=== PATIENT | male | born 1960 | race Caucasian/White ===

== ENCOUNTER 2016-06-23 12:59 | Inpatient (IN) | payer BC ==
[2016-06-23] MEDS ORDERED: HEPARIN SODIUM,PORCINE 5,000 UNIT/ML 1 ML VIAL IV ONE (13:02)
[2016-06-23] MEDS ORDERED: ATORVASTATIN 80 MG TAB PO STA (13:03)
[2016-06-23] MEDS ORDERED: LIDOCAINE 2% INJ 20 MG/ML (20 ML MDV) ONE (13:07)
[2016-06-23] MEDS ORDERED: MIDAZOLAM 2 MG/2 ML VIAL ONE (13:08)
--- NOTE | 2016-06-23 13:11 | ED ---
General Adult HPI - General Stated complaint: Stemi Time Seen by Provider: 06/23/16 12:59 Source: RN notes reviewed - History of Present Illness Initial comments: Is a 55-year-old male who presents emergency Department with an hour and a half of chest pain. Patient states it does not radiate anywhere. He states he somewhat short of breath. Patient states he has no hypertension high cholesterol or diabetes. He does admit that he has family history of a brother who had a heart attack. Patient denies any smoking as well. Patient received nitroglycerin in the ambulance and reduce his pain significantly. Patient states after the second nitro in the emergency department he states his pain is a 0. Patient denies any palpitations per patient denies any headache patient denies numbness weakness. Patient denies any lightheadedness dizziness or near syncopal episode. Patient denies any abdominal pain patient denies nausea vomiting diarrhea. Review of Systems ROS Statement: Those systems with pertinent positive or pertinent negative responses have been documented in the HPI. ROS Other: All systems not noted in ROS Statement are negative. General Exam - General Exam Comments Initial Comments: GENERAL: Patient is well-developed and well-nourished. Patient is nontoxic and well- hydrated and is in mild distress. ENT: Neck is soft and supple. No significant lymphadenopathy is noted. Oropharynx is clear. Moist mucous membranes. Neck has full range of motion without eliciting any pain. EYES: The sclera were anicteric and conjunctiva were pink and moist. Extraocular movements were intact and pupils were equal round and reactive to light. Eyelids were unremarkable. PULMONARY: Unlabored respirations. Good breath sounds bilaterally. No audible rales rhonchi or wheezing was noted. CARDIOVASCULAR: There is a regular rate and rhythm without any murmurs gallops or rubs. ABDOMEN: Soft and nontender with normal bowel sounds. No palpable organomegaly was noted. There is no palpable pulsatile mass. SKIN: Skin is clear with no lesions or rashes and otherwise unremarkable. NEUROLOGIC: Patient is alert and oriented x3. Cranial nerves II through XII are grossly intact. Motor and sensory are also intact. Normal speech, volume and content. Symmetrical smile. MUSCULOSKELETAL: Normal extremities with adequate strength and full range of motion. No lower extremity swelling or edema. No calf tenderness. LYMPHATICS: No significant lymphadenopathy is noted PSYCHIATRIC: Normal psychiatric evaluation. Medical Decision Making - Medical Decision Making EKG shows a normal sinus rhythm at 61 bpm TN interval is on a 56 dresses 150 QT interval 38 QTC is 390. Patient has a right bundle branch block. Patient also has some ST segment elevation in V2 and V3. Patient had an EKG sent to us via EMS that showed significant elevation the precordial leads. I spoke with Dr. Sweet at that time and he agreed to take the patient the Grounds Keeper as soon as we evaluated the patient and stabilize patient. I started the patient on a bolus of heparin in the ER. I gave the patient nitroglycerin and Lipitor. Chest x-ray shows no acute abnormality Patient was taken to the cardiac catheterization lab Critical Care Time Critical Care Time: Yes Total Critical Care Time: 30 Disposition Clinical Impression: STEMI (ST elevation myocardial infarction) Disposition: ADMITTED IP TO THIS HOSP Referrals: None,Stated [Primary Care Provider] - 1-2 days Time of Disposition: 13:14
--- NOTE | 2016-06-23 13:21 | XR ---
EXAMINATION TYPE: XR chest 1V portable DATE OF EXAM: 06/23/2016 1:16 PM Comparison: None Clinical History: 55-year-old male with chest Pain Findings: The cardiomediastinal silhouette, aorta, and pulmonary vasculature are within normal limits. Lungs and pleural spaces are clear. Impression: No acute cardiopulmonary process.
[2016-06-23 13:22] LABS: Basophils # (A) 0.1 k/uL (0-0.2); Basophils % (A) 1 %; CH 31.4; CHCM 34.3; Eosinophils # (A) 0.1 k/uL (0-0.7); Eosinophils % (A) 3 %; HCT 44.1 % (39.0-53.0); HDW 2.57; HGB 14.8 gm/dL (13.0-17.5); Luc # (Auto) 0.21; Luc % (Auto) 4; Lymphocytes # (A) 1.6 k/uL (1.0-4.8); Lymphocytes % (A) 31 %; MCH 30.9 pg (25.0-35.0); MCHC 33.5 g/dL (31.0-37.0); MCV 92.2 fL (80.0-100.0); Mean Platelet Volume 7.7; Monocytes # (A) 0.2 k/uL (0-1.0); Monocytes % (A) 4 %; Neutrophils % (A) 57 %; RBC 4.78 m/uL (4.30-5.90); RDW 12.8 % (11.5-15.5); WBC 5.2 k/uL (3.8-10.6); WBC (Perox) 5.27
[2016-06-23] MEDS ORDERED: SODIUM CHLORIDE 0.9% 1,000 ML IV ONE (13:27)
[2016-06-23] MEDS: MIDAZOLAM 2 MG/2 ML VIAL IVP ONE ×2 (13:27→13:53)
[2016-06-23] MEDS ORDERED: IV FLUID CONTINUATION 1,000 ML IV ONE (13:27)
[2016-06-23] MEDS ORDERED: LIDOCAINE 2% INJ 20 MG/ML SQ ONE (13:31)
[2016-06-23 13:36] LABS: ALT 30 U/L (21-72); AST 31 U/L (17-59); Alkaline Phosphatase 62 U/L (38-126); Anion Gap 11 mmol/L; Blood Urea Nitrogen 17 mg/dL (9-20); Calcium 9.3 mg/dL (8.4-10.2); Carbon Dioxide 26 mmol/L (22-30); Chloride 110 mmol/L (98-107); Glucose 96 mg/dL (74-99); Non-African American GFR(MDRD) >60 (>60 ml/min/1.73 sqM); Potassium 4.7 mmol/L (3.5-5.1); Sodium 147 mmol/L (137-145); Total Bilirubin 0.7 mg/dL (0.2-1.3); Total Protein 7.3 g/dL (6.3-8.2)
[2016-06-23] MEDS ORDERED: BIVALIRUDIN BOLUS 250 MG/50 ML IV ONE (13:42)
[2016-06-23] MEDS ORDERED: PRASUGREL 10 MG TAB ONE (13:45)
[2016-06-23] MEDS ORDERED: PRASUGREL 10 MG TAB PO ONE (13:47)
[2016-06-23] MEDS ORDERED: NITROGLYCERIN 1000MCG/10ML SYRINGE INTRACORON ONE ×2 (13:50→14:06)
[2016-06-23 13:54] LABS: INR 1.2 (<1.1); Partial Thromboplastin Time 25.3 sec (22.0-30.0); Prothrombin Time 11.8 sec (9.0-12.0)
[2016-06-23 13:56] LABS: Creatine Kinase MB 1.5 ng/mL (0.0-2.4)
[2016-06-23] MEDS ORDERED: fentaNYL (PF) 50 MCG/ML 2 ML AMP ONE (14:04)
[2016-06-23] MEDS ORDERED: fentaNYL (PF) 50 MCG/ML 2 ML AMP IV ONE (14:05)
[2016-06-23] MEDS ORDERED: niCARdipine Syringe (1,000 mcg/10 mL) INTRACORON ONE (14:06)
[2016-06-23 14:09] LABS: Troponin I 0.078 ng/mL (0.000-0.034)
[2016-06-23] MEDS ORDERED: IOHEXOL 350 MG/ML 100 ML BOTTLE INJ ONE (14:12)
[2016-06-23] MEDS ORDERED: BIVALIRUDIN 250 MG in SODIUM CHLORIDE 0.9% 50 ML IV ONE (14:25)
--- NOTE | 2016-06-23 14:36 | HP ---
DATE OF ADMISSION: CHIEF COMPLAINT: Chest pain. A 55-year-old gentleman with no significant past medical history came to the ER complaining of precordial chest pain. It started suddenly 8 out of 10 intensity pressure that radiated down his arms. Daughter took him to a fire station and from there he was brought in. On his initial presentation, he has sinus rhythm with right bundle branch block with ST segment elevation. He came in with precordial chest pressure and ST segment elevation SC in the anterior wall with ST segment elevation in V2. Due to this, he was advised emergent cardiac catheterization with a view to performing angioplasty. The patient had been explained of risks, benefits, and alternatives, understood and accepted. Past medical history is negative for hypertension, diabetes, dyslipidemia. MEDICATIONS: Concerta. ALLERGIES: As charted. FAMILY HISTORY: Significant for premature coronary artery disease. SOCIAL HISTORY: Negative for smoking, EtOH abuse, or drug abuse. REVIEW OF SYSTEMS: HEENT: Unremarkable. CARDIAC: As described above. RESPIRATORY: Negative. GI: Negative. GENITOURINARY: Negative. MUSCULOSKELETAL: Negative. ENDOCRINE: Negative. DERMATOLOGY: Negative. CONSTITUTIONAL: Negative. ONCOLOGICAL: Negative. The rest of the system review is not relevant. On exam, comfortable at rest. Vital signs are stable. Chest exam reveals good air entry bilaterally. Heart exam reveals first and second heart sound. No gallop, no murmur, no rub. ABDOMEN: Soft, nontender. Exam of the extremities did not reveal any edema. Peripheral pulses are felt. Labs are pending. EKG is as described above. ASSESSMENT: Acute anterior wall myocardial infarction. PLAN: Patient will undergo emergent cardiac catheterization with a view to performing angioplasty.
--- NOTE | 2016-06-23 14:40 | CC ---
DATE OF SERVICE: INDICATION: Acute ST segment elevation DC. PROCEDURE NOTE: After obtaining informed consent, left heart catheterization and coronary angiogram were performed via the right femoral artery using standard Gerald catheters. Patient tolerated the procedure well without any obvious immediate complications. FINDINGS: 1. LEFT VENTRICULOGRAM: Left ventriculogram was not performed. 2. ANGIOGRAPHIC DATA: Left main coronary artery: Left main coronary artery is a short vessel and is free of stenosis. It divides into left anterior descending coronary artery and circumflex coronary artery. Circumflex coronary artery is a large codominant system and AV groove has 70% to 80% stenosis, but is a small-caliber vessel. LAD is a large vessel that wraps around the apex of the heart and in the midportion there is a focal area of 90% to 95% stenosis. Right coronary artery only one image was obtained using a Xavier catheter. The mid RCA shows a 70% to 80% stenosis. CONCLUSION: Three-vessel coronary artery disease as described above with critical lesion in the LAD that will be angioplastied at this time and patient will undergo angioplasty of right coronary artery at a later time.
[2016-06-23] MEDS ORDERED: ATROPINE SULFATE 0.1 MG/ML 10ML SYRINGE IV PRN (14:45)
[2016-06-23] MEDS ORDERED: ALPRAZolam 0.25 MG TAB PO PRN (14:45)
[2016-06-23] MEDS ORDERED: MAG HYDROX/AL HYDROX/SIMETH 30 ML CUP PO PRN (14:45)
[2016-06-23] MEDS ORDERED: RX INFO: IV CONTRAST WAS GIVEN 1 EACH MISC MISCELLANE PRN (14:45)
[2016-06-23] MEDS ORDERED: NITROGLYCERIN SL TABS 0.4 MG TAB SUBLINGUAL PRN (14:45)
[2016-06-23] MEDS ORDERED: HYDROcodone/APAP 5-325MG 1 EACH TAB PO PRN (14:45)
[2016-06-23 16:38] LABS: Glucose,Whole Blood 112 mg/dL (75-99)
[2016-06-23] MEDS: SODIUM CHLORIDE 0.9% 1,000 ML IV SCH (18:12)
[2016-06-23] MEDS: METOPROLOL TARTRATE 25 MG TAB PO SCH (21:17)
[2016-06-24] MEDS: SODIUM CHLORIDE 0.9% 1,000 ML IV SCH (02:57)
[2016-06-24 04:57] LABS: Basophils % (A) 1 %; CH 30.9; CHCM 33.8; Eosinophils # (A) 0.2 k/uL (0-0.7); Eosinophils % (A) 2 %; HCT 39.3 % (39.0-53.0); HDW 2.61; HGB 12.9 gm/dL (13.0-17.5); Luc % (Auto) 3; Lymphocytes # (A) 1.7 k/uL (1.0-4.8); Lymphocytes % (A) 23 %; MCH 30.2 pg (25.0-35.0); MCHC 32.9 g/dL (31.0-37.0); MCV 91.7 fL (80.0-100.0); Mean Platelet Volume 7.8; Monocytes # (A) 0.4 k/uL (0-1.0); Monocytes % (A) 5 %; Neutrophils % (A) 67 %; RBC 4.28 m/uL (4.30-5.90); RDW 12.8 % (11.5-15.5); WBC 7.4 k/uL (3.8-10.6); WBC (Perox) 8.33
[2016-06-24 05:14] LABS: Anion Gap 8 mmol/L; Blood Urea Nitrogen 13 mg/dL (9-20); Calcium 8.6 mg/dL (8.4-10.2); Carbon Dioxide 22 mmol/L (22-30); Chloride 110 mmol/L (98-107); Cholesterol 146 mg/dL (<200); Glucose 94 mg/dL (74-99); HDL Cholesterol 41 mg/dL (40-60); Non-African American GFR(MDRD) >60 (>60 ml/min/1.73 sqM); Potassium 4.2 mmol/L (3.5-5.1); Sodium 140 mmol/L (137-145); Triglycerides 111 mg/dL (<150)
[2016-06-24] MEDS ORDERED: METHYLPHENIDATE HCL 54 MG PO SCH (09:00)
[2016-06-24] MEDS: PRASUGREL 10 MG TAB PO SCH (09:38)
[2016-06-24] MEDS: LISINOPRIL 10 MG TAB PO SCH ×2 (09:38→10:41)
[2016-06-24] MEDS: ASPIRIN 325 MG TAB PO SCH (09:38)
[2016-06-24] MEDS: METOPROLOL TARTRATE 25 MG TAB PO SCH ×2 (09:38→20:26)
--- NOTE | 2016-06-24 10:47 | ECHOF ---
Referral Reason:Post CO MEASUREMENTS -------- HEIGHT: 182.9 cm WEIGHT: 98.4 kg BP: 117/79 RVIDd: 2.7 cm (< 3.3) IVSd: 1.0 cm (0.6 - 1.1) LVIDd: 4.9 cm (3.9 - 5.3) LVPWd: 1.0 cm (0.6 - 1.1) IVSs: 1.4 cm LVIDs: 4.0 cm LVPWs: 1.4 cm LA Diam: 2.2 cm (2.7 - 3.8) LAESV Index (A-L): 16.09 ml/m Ao Diam: 3.5 cm (2.0 - 3.7) AV Cusp: 2.2 cm (1.5 - 2.6) LA Diam: 3.0 cm (2.7 - 3.8) MV EXCURSION: 22.451 mm (> 18.000) MV EF SLOPE: 93 mm/s (70 - 150) EPSS: 1.1 cm MV E Isra: 0.54 m/s MV DecT: 264 ms MV A Isra: 0.67 m/s MV E/A Ratio: 0.80 RAP: 5.00 mmHg RVSP: 16.63 mmHg FINDINGS -------- Sinus rhythm. This was a technically adequate study. There is borderline concentric left ventricular hypertrophy. Overall left ventricular systolic function is mild-moderately impaired with, an EF between 40 - 45 %. Mid anterior LV wall motion is hypokinetic. Mid lateral LV wall motion is hypokinetic. Mid anteroseptal LV wall motion is hypokinetic. [place] Hypokinesis. The right ventricle is normal in size. Normal LA size by volume 22+/-6 ml/m2. The right atrial size is normal. The aortic valve is trileaflet and appears structurally normal. There is no evidence of aortic regurgitation. The mitral valve is normal. Mild mitral regurgitation is present. Mild tricuspid regurgitation present. There is no evidence of pulmonary hypertension. The right ventricular systolic pressure, as measured by Doppler, is 16.63mmHg. There is no pulmonic regurgitation present. The aortic root size is normal. There is no pericardial effusion. CONCLUSIONS -------- 1. This was a technically adequate study. 2. Mild mitral regurgitation is present. 3. Mild tricuspid regurgitation present. 4. There is no evidence of pulmonary hypertension. 5. There is no pulmonic regurgitation present. 6. There is no pericardial effusion. 7. There is borderline concentric left ventricular hypertrophy. 8. Overall left ventricular systolic function is mild-moderately impaired with, an EF between 40 - 45 %. 9. Mid anterior LV wall motion is hypokinetic. 10. Mid lateral LV wall motion is hypokinetic. 11. Mid anteroseptal LV wall motion is hypokinetic. 12. [place] Hypokinesis. 13. Normal LA size by volume 22+/-6 ml/m2. 14. The aortic valve is trileaflet and appears structurally normal. LICENSED PRACTICAL NURSE INSTRUCTOR: Salena Gonzalez RDCS
--- NOTE | 2016-06-24 14:07 | PN ---
Dank is a 55-year-old gentleman who is admitted to hospital with acute anterior wall myocardial infarction, underwent cardiac catheterization and angioplasty of LAD. He has hemodynamically significant lesion in the RCA, which is going to be angioplasty, probably on Wednesday. This morning he is doing well and is free of symptoms. Labs show a hemoglobin of 12.9, platelet count is normal at 190, LDL is 83. On exam, vital signs are stable. Chest exam reveals good air entry bilaterally. Heart exam reveals first and second heart sounds. No gallop. Groin is free of bleeding, bruit, hematoma. Foot pulses are intact. An echocardiogram shows an ejection fraction of 40% to 45% with evidence of hypokinesis involving anterior wall. Patient is on optimal medical therapy including aspirin, Lipitor, Zestril, Lopressor, and Effient. ASSESSMENT: Acute anterior wall myocardial infarction. PLAN: Patient is doing well. Will transfer him to regular floor. Continue with his current medications.
[2016-06-24] MEDS: ATORVASTATIN 80 MG TAB PO SCH (20:27)
--- NOTE | 2016-06-24 22:15 | PTCA ---
DATE OF SERVICE: June 23, 2016 Performing physician: Luis Alfredo Moreno M.D., routeman. PROCEDURE PERFORMED: 1. Successful stenting of the mid left anterior descending artery using a 3.25 x 23 mm Xience MOMO with a good angiographic result. 2. Successful stenting of the proximal left anterior descending artery using 3.5 x 18 mm Xience MOMO with a good angiographic result. INDICATION: This is a pleasant 55-year-old gentleman who presented to the hospital with chest discomfort and was diagnosed with acute anterior ST elevation myocardial infarction. He underwent a heart catheterization by Dr. Sweet and was found to have critical disease involving the proximal and mid LAD. APPROACH: Right common femoral artery. COMPLICATIONS: None. LEVEL OF SEDATION: Moderate. PROCEDURE DESCRIPTION: After obtaining after diagnostic heart catheterization was performed by Dr. Sweet, we decided to pursue with intervention on the LAD. Anticoagulation was initiated using Angiomax. Subsequently, I did take an XB 3.5 LAD guide and the left main was engaged. A Whisper wire was used to wire the LAD. Subsequently, I did the pre-dilatation using 2.5 x 12 mm balloon, where I ballooned the mid and proximal LAD. After that, I did stent initially the mid LAD using 3.25 x 23 mm Xience MOMO, where the stent was positioned under fluoroscopy guidance and then it was deployed under 10 atmospheres. After that, I postdilated using 3.5 mm balloon. For the proximal LAD, I deployed 3.5 x 18 mm Xience MOMO, where the stent again was positioned under fluoroscopy guidance, then it was deployed under its nominal pressure with the following angiogram showed good angiographic results. The procedure was completed without any complication. POSTPROCEDURE MANAGEMENT: 1. Dual antiplatelet therapy. 2. Risk factor modification. 3. Follow up with the patient.
[2016-06-25 06:13] LABS: CH 31.1; CHCM 33.8; HCT 42.8 % (39.0-53.0); HDW 2.53; HGB 14.1 gm/dL (13.0-17.5); MCH 30.3 pg (25.0-35.0); MCHC 32.9 g/dL (31.0-37.0); MCV 92.2 fL (80.0-100.0); Mean Platelet Volume 6.8; RBC 4.64 m/uL (4.30-5.90); RDW 12.7 % (11.5-15.5); WBC 7.2 k/uL (3.8-10.6)
[2016-06-25 06:24] LABS: Anion Gap 6 mmol/L; Blood Urea Nitrogen 10 mg/dL (9-20); Calcium 8.8 mg/dL (8.4-10.2); Carbon Dioxide 26 mmol/L (22-30); Chloride 107 mmol/L (98-107); Glucose 98 mg/dL (74-99); Magnesium 2.1 mg/dL (1.6-2.3); Non-African American GFR(MDRD) >60 (>60 ml/min/1.73 sqM); Potassium 3.9 mmol/L (3.5-5.1); Sodium 139 mmol/L (137-145)
[2016-06-25] MEDS ORDERED: Potassium Replacement Protocol 1 EACH MISC MISCELLANE PRN (06:58)
[2016-06-25] MEDS ORDERED: POTASSIUM CHLORIDE ER 20 MEQ TAB.ER PO SCH (07:00)
[2016-06-25] MEDS: METOPROLOL TARTRATE 25 MG TAB PO SCH (08:16)
[2016-06-25] MEDS: PRASUGREL 10 MG TAB PO SCH (08:16)
[2016-06-25] MEDS: LISINOPRIL 10 MG TAB PO SCH (08:16)
[2016-06-25] MEDS: ASPIRIN 325 MG TAB PO SCH (08:16)
[2016-06-25] MEDS ORDERED: NITROGLYCERIN SL TABS 0.4 MG TAB SUBLINGUAL PRN (13:03)
[2016-06-25] MEDS ORDERED: ALPRAZolam 0.5 MG TAB PO PRN (13:03)
[2016-06-25] MEDS ORDERED: ASPIRIN 325 MG TAB PO STA (13:03)
[2016-06-25] MEDS ORDERED: ALPRAZolam 0.25 MG TAB PO PRN (13:03)
[2016-06-25] MEDS ORDERED: SODIUM CHLORIDE 0.9% 1,000 ML in EMPTY BAG 1 BAG IV ONE (13:03)
[2016-06-25] MEDS ORDERED: ATORVASTATIN 80 MG TAB PO STA (13:03)
--- NOTE | 2016-06-25 17:21 | PN ---
Patient was admitted to the hospital with acute anterior myocardial infarction. Cardiac catheterization was done by Dr. Sweet and LAD was stented by Dr. Mroeno on June 23. Patient developed an episode of hypotension after receiving metoprolol and lisinopril. He responded to IV fluids without any chest pain or pressure. No symptoms at all ( ) came back ( ) mm systolic. Symptoms have disappeared, so will hold Lisinopril and metoprolol for the time being. Continue all the statins and antiplatelet agents as before. Patient's vital signs are stable at the present time. Denies any chest pain or pressure. Pressure came up to 92/52, pulse rate of 64. Pulse rate was 70 beats per minute and regular. Respirations of 20. Head normocephalic. HEENT unremarkable. Neck is supple. No thyroid enlargement. No bruit noted. Good carotid upstroke bilaterally. Chest is symmetrical. Cardiac examination: Regular rate and rhythm. S1 and S2. Lungs are clinically to auscultation and percussion. Patient is currently on: 1. Alprazolam. 2. Atorvastatin 80 mg p.o. daily. 3. Aspirin 325 mg p.o. daily. Lisinopril is on hold. Also advised to hold metoprolol for the time being. Continue Effient as before. Continue IV fluids at 100 mL/hour. Patient is scheduled to have ( ) staged angioplasty of the right coronary tomorrow; probably the second case to be done by Dr. Moreno. ASSESSMENT: 1. Recent anterior myocardial infarction with stenting of the mid left anterior descending coronary artery done on June 23. 2. Hyperlipidemia. 3. Cardiomyopathy with ejection fraction around 40% to 45%. Will need to add spironolactone because probably once the blood pressure stabilizes will do that along with a small dose of Lisinopril, maybe 2.5 mg to start with. Patient's prognosis is fair with continued medical therapy and risk factor modification.
[2016-06-25] MEDS: ATORVASTATIN 80 MG TAB PO SCH (20:54)
[2016-06-25] MEDS ORDERED: METOPROLOL TARTRATE 12.5 MG TAB PO SCH (21:00)
--- NOTE | 2016-06-25 22:26 | HP ---
DATE OF SERVICE: 06/24/2016 CHIEF COMPLAINT: Chest pain. HISTORY OF PRESENT ILLNESS: Mr. Bhandari is a 55-year-old male without significant past medical history, came to the ER with complaints of precordial chest pain, started suddenly, 8 out of 10 intensity, radiated down his left arm. Patient's daughter took him to [place]. From there, he was brought into the hospital. Otherwise, patient does have some dizziness with the chest pain. No onset of nausea. No onset of vomiting. Patient did not have any chest pain or short of breath. EKG showed ST segment elevation with right bundle branch block and ST elevation in V2. He was taken emergently to cardiac catheterization and had stent placement to LAD. Currently, patient is chest pain free. REVIEW OF SYSTEMS: CONSTITUTIONAL: No fever. No chills. RESPIRATORY: No cough or sputum production. CARDIOVASCULAR: No chest pain or shortness of breath. ABDOMEN: No nausea, vomiting or abdominal pain. GENITOURINARY: Negative. ENDOCRINE: Negative. PSYCHIATRIC: Negative. SKIN: Negative. All other 14-point review of systems negative except as above. PAST MEDICAL HISTORY: Patient denied any history of hypertension, diabetes mellitus or hyperlipidemia. PAST SURGICAL HISTORY: None. SOCIAL HISTORY: Negative for smoking, alcohol, drugs or IVDU. FAMILY HISTORY: Significant for premature coronary artery disease in his brother and other family members. ALLERGIES: No known drug allergies. HOME MEDICATIONS: Methylphenidate. PHYSICAL EXAMINATION: A 55-year-old male lying in the bed; awake, alert, oriented x3, appears to be in no apparent distress. VITALS: Blood pressure 110/71, pulse is from 80 to 58, respirations 14, temperature afebrile, pulse ox 97% on room air. HEENT: Atraumatic, normocephalic. Neck is supple. No JVD. CVS: S1, S2 heard. No murmurs. No gallop. No rub. LUNGS: Bilateral air entry is present. No edema. No crackles. ABDOMEN: Soft, nontender. Bowel sounds present. LANDSCAPING AND GROUNDSKEEPING LABORER: Awake, alert and oriented x3. No focal deficits. EXTREMITIES: No edema ( ). No clubbing or cyanosis. PSYCHIATRIC: Cooperative. LABORATORY DATA: WBC 5.2, hemoglobin 14.8, platelets are 218, INR 1.2. Sodium 147, potassium 4.7, chloride 110, bicarb is 26. BUN 17, creatinine 1.04. Troponin 0.078. ( ) is 83. EKG showed ST elevation in lead V2 and right bundle branch block. Chest x-ray: No acute cardiopulmonary process. IMPRESSION: 1. Acute ST-elevated myocardial infarction, status post cardiac catheterization and stenting of left anterior descending artery. 2. Anxiety. DISCUSSION AND PLAN: Patient will be continued on tele monitoring. Will continue to monitor the patient in the ICU today and continue the aspirin, prasugrel and statins and follow up closely. Cardiology is on board. Further recommendations based on the clinical course.
[2016-06-26 04:55] LABS: Basophils % (A) 1 %; CH 30.9; CHCM 33.7; Eosinophils # (A) 0.2 k/uL (0-0.7); Eosinophils % (A) 4 %; HCT 41.6 % (39.0-53.0); HDW 2.55; HGB 13.9 gm/dL (13.0-17.5); Luc # (Auto) 0.23; Luc % (Auto) 3; Lymphocytes # (A) 1.8 k/uL (1.0-4.8); Lymphocytes % (A) 26 %; MCH 30.7 pg (25.0-35.0); MCHC 33.3 g/dL (31.0-37.0); Mean Platelet Volume 7.1; Monocytes # (A) 0.5 k/uL (0-1.0); Monocytes % (A) 7 %; Neutrophils # (A) 4.2 k/uL (1.3-7.7); Neutrophils % (A) 60 %; RBC 4.53 m/uL (4.30-5.90); RDW 12.6 % (11.5-15.5); WBC 7.1 k/uL (3.8-10.6); WBC (Perox) 7.23
[2016-06-26 05:13] LABS: INR 1.2 (<1.1); Partial Thromboplastin Time 24.8 sec (22.0-30.0); Prothrombin Time 11.9 sec (9.0-12.0)
[2016-06-26 05:27] LABS: Anion Gap 9 mmol/L; Blood Urea Nitrogen 11 mg/dL (9-20); Calcium 8.7 mg/dL (8.4-10.2); Carbon Dioxide 21 mmol/L (22-30); Chloride 110 mmol/L (98-107); Glucose 98 mg/dL (74-99); Non-African American GFR(MDRD) >60 (>60 ml/min/1.73 sqM); Phosphorous 3.6 mg/dL (2.5-4.5); Potassium 4.3 mmol/L (3.5-5.1); Sodium 140 mmol/L (137-145)
[2016-06-26] MEDS: PRASUGREL 10 MG TAB PO SCH (08:18)
[2016-06-26] MEDS: ASPIRIN 325 MG TAB PO SCH (08:18)
[2016-06-26] MEDS ORDERED: LISINOPRIL 5 MG TAB PO SCH (09:00)
[2016-06-26] MEDS ORDERED: SODIUM CHLORIDE 0.9% 500 ML IV ONE (09:45)
[2016-06-26] MEDS ORDERED: VERAPAMIL 2.5 MG/ML 2 ML AMP ONE ×2 (10:00→10:01)
[2016-06-26] MEDS ORDERED: LIDOCAINE 2% INJ 20 MG/ML (20 ML MDV) ONE (10:00)
[2016-06-26] MEDS ORDERED: MIDAZOLAM 2 MG/2 ML VIAL ONE (10:08)
[2016-06-26] MEDS ORDERED: MIDAZOLAM 2 MG/2 ML VIAL IV ONE (10:13)
[2016-06-26] MEDS ORDERED: LIDOCAINE 2% INJ 20 MG/ML SQ ONE (10:13)
[2016-06-26] MEDS: VERAPAMIL SYRINGE (5 MG/10 ML) INTRAARTER ONE ×2 (10:14→10:29)
[2016-06-26] MEDS ORDERED: BIVALIRUDIN BOLUS 250 MG/50 ML IV ONE (10:17)
[2016-06-26] MEDS ORDERED: BIVALIRUDIN 250 MG in SODIUM CHLORIDE 0.9% 50 ML IV ONE (10:18)
[2016-06-26] MEDS ORDERED: NITROGLYCERIN 1000MCG/10ML SYRINGE INTRACORON ONE (10:20)
[2016-06-26] MEDS ORDERED: IOHEXOL 350 MG/ML 100 ML BOTTLE INJ ONE (10:31)
[2016-06-26] MEDS ORDERED: RX INFO: IV CONTRAST WAS GIVEN 1 EACH MISC MISCELLANE PRN (10:32)
[2016-06-26] MEDS ORDERED: ATROPINE SULFATE 0.1 MG/ML 10ML SYRINGE IV PRN (10:32)
[2016-06-26] MEDS ORDERED: ZOLPIDEM 5 MG TAB PO PRN (10:32)
[2016-06-26] MEDS ORDERED: NITROGLYCERIN SL TABS 0.4 MG TAB SUBLINGUAL PRN (10:32)
[2016-06-26] MEDS ORDERED: MAG HYDROX/AL HYDROX/SIMETH 30 ML CUP PO PRN (10:32)
[2016-06-26] MEDS ORDERED: SODIUM CHLORIDE 0.9% 1,000 ML IV SCH (10:45)
--- NOTE | 2016-06-26 11:07 | PN ---
DATE OF SERVICE: 06/25/2016 INTERVAL HISTORY: Mr. Bhandari is a 55-year-old male without significant past medical history admitted to the hospital with complaints of chest pain and was found to have an ST-elevated MN. Patient underwent cardiac catheterization with stenting of LAD. Patient is scheduled for re-catheterization with staged procedure and possible intervention to the right coronary artery. Otherwise, currently the patient denied any complaints of chest pain or shortness of breath. The patient became hypotensive and blood pressure medications, including metoprolol and lisinopril, have been stopped at this time. Patient had a 2-D echocardiogram, showed ejection fraction of 40% to 45%. Otherwise, denied any complaint of chest pain or shortness of breath now. No nausea or vomiting. REVIEW OF SYSTEMS: CONSTITUTIONAL: No fever. No chills. RESPIRATORY: No cough or sputum production. CARDIOVASCULAR: No chest pain or shortness of breath. ABDOMEN: No nausea, abdominal pain. GENITOURINARY: Negative. ENDOCRINE: Negative. PSYCHIATRIC: Negative. SKIN: Negative. All other 14-point review of systems negative except as above. CURRENT MEDICATIONS: Reviewed. PHYSICAL EXAM: A 55-year-old male, lying in the bed; awake, alert and oriented x3. The patient in no apparent distress. VITALS: Blood pressure is 110/65, pulse is 65, respirations 19, temperature afebrile, pulse ox 97% on room air. HEENT: Atraumatic, normocephalic. Neck is supple. No JVD. CVS: S1 and S2 heard. No murmurs. No gallop. LUNGS: Bilateral air entry is present. No wheezing. No crackles. ABDOMEN: Soft, nontender. Bowel sounds are present. TREATMENT PLANT OPERATOR: Awake, alert, oriented x3. No focal neurologic deficits. Cranial nerves grossly intact. EXTREMITIES: No edema. Pulses palpable bilaterally. No clubbing or cyanosis. PSYCHIATRIC: Cooperative. LABORATORY DATA: WBC 7.8, hemoglobin 14.1, platelets 183. Sodium 139, potassium 3.9, chloride 107, bicarb is 26. BUN 10, creatinine 1.0. Magnesium 2.1. LDL 83. IMPRESSION: 1. Acute ST-elevated myocardial infarction and anterior wall infarction, status post cardiac catheterization, stenting of left anterior descending artery is planning for re-catheterization and possible intervention to right coronary artery disease tomorrow. 2. Hypotensive episode. Blood pressure medications have been held, including metoprolol and lisinopril. 3. Coronary artery disease. 4. Echocardiogram with ejection fraction of 40% to 45%. DISCUSSION AND PLAN: Patient will be continued on IV fluids and blood pressure medications have been held. Will continue with the aspirin, Plavix and Effient and follow up closely. Further recommendations based on clinical course and Cardiology is on board.
--- NOTE | 2016-06-26 12:34 | CDI ---
In responding to this query, please exercise your independent professional judgment. The [facility] Coding Staff and Clinical Documentation Specialists appreciate your assistance in clarifying documentation, maintaining compliance with coding guidelines, accurately documenting patients condition and capturing severity of illness. The fact that a question is asked does not imply that any particular answer is desired or expected. Communication forms are a method of clarifying documentation and are not made part of the Legal Health Record. Thank you in advance for your clarification. Last Revision, February 2015 Christian Rodriguez [address] [place] [address] Documentation Clarification Form Date: 06/26/2016 12:19:00 PM From: Nani Turner RN, CCDS Admit Date: 06/23/2016 1:20:00 PM Patient Name: Dank Bhandari Visit Number: [id number] Dr. Nain Baker Cardiomyopathy is documented in the 06/25 Cardiology progress note and requires further specificity. History/Risk Factors: Acute anterior wall DC this admission Clinical indicators: 06/25 Cardiology Progress Note: "Recent anterior myocardial infarction with stenting of the mid left anterior descending coronary artery done on June 23. Cardiomyopathy with ejection fraction around 40% to 45%. " Patient C/O: chest pain and SOB Echocardiogram: EF 40-45%, borderline concentric LVH, hypokinesis of mid anterior/lateral/anteroseptal, and apex Treatment: No cardiac meds ordered. Consults: Cardiology In your professional opinion; can you please clarify the type of cardiomyopathy and underlying cause if known? Congenital Dilated Hypertrophic Ischemic Secondary, please indicate underlying cause if known Unable to determine Other, please specify Please document in your progress notes and discharge summary in order to capture severity of illness and risk of mortality. Include clinical findings that support your diagnosis. FYI: Press F11 to launch patient chart Place X here if this finding has no clinical significance, is not applicable or if you are not able to provide any additional documentation. CAPRI
--- NOTE | 2016-06-26 20:55 | PTCA ---
DATE OF SERVICE: 06/26/2016. Performing physician: Luis Alfredo Moreno M.D. director of health education. PROCEDURE PERFORMED: Successful stenting of the mid right coronary artery using 2.5 x 12 mm Xience MOMO with a good angiographic result. INDICATIONS This is a pleasant 55 -year-old gentleman who presented to the hospital a few days ago, with acute anterior ST elevation myocardial infarction and underwent stenting of the LAD. He was found to have severe disease involving the right coronary artery and he was brought today to undergo stenting of the RCA. Approach: Right radial artery. COMPLICATIONS: None. Level of sedation: Moderate with a sedation length of half an hour. PROCEDURE DESCRIPTION: After obtaining informed consent, the patient was brought to the cardiac kiln labourer. The right radial artery was cannulated using micropuncture technique. The micropuncture wire passed easily. Then I placed a 6 Spanish sheath in the right radial artery. Subsequently, I did give the patient 2 mg of Verapamil IA. After that anticoagulation was initiated using Angiomax. Subsequently, I did engage the RCA using multipurpose guiding catheter. Then I wired the RCA using a Whisper wire. I did direct stenting on that lesion using 2.5 x 12 mm Xience MOMO, where the stent was positioned under fluoroscopy guidance and it was deployed under 16 atmospheres for 30 seconds. The following angiogram showed good angiographic results. The procedure was completed without any complication. CONCLUSION: Successful stenting of the mid right coronary artery using 2.5 x 12 mm Xience MOMO with a good angiographic result. POSTPROCEDURE MANAGEMENT: 1. Dual antiplatelet therapy. 2. Risk factor modifications. 3. Follow up with the patient.
[2016-06-26] MEDS: ATORVASTATIN 80 MG TAB PO SCH (21:15)
[2016-06-27 04:44] LABS: Basophils # (A) 0.1 k/uL (0-0.2); Basophils % (A) 1 %; CH 30.9; Eosinophils # (A) 0.4 k/uL (0-0.7); Eosinophils % (A) 5 %; HCT 43.2 % (39.0-53.0); HDW 2.59; HGB 14.2 gm/dL (13.0-17.5); Luc # (Auto) 0.23; Luc % (Auto) 3; Lymphocytes # (A) 1.8 k/uL (1.0-4.8); Lymphocytes % (A) 24 %; MCHC 32.9 g/dL (31.0-37.0); MCV 91.1 fL (80.0-100.0); Mean Platelet Volume 7.1; Monocytes # (A) 0.5 k/uL (0-1.0); Monocytes % (A) 7 %; Neutrophils # (A) 4.6 k/uL (1.3-7.7); Neutrophils % (A) 61 %; RBC 4.74 m/uL (4.30-5.90); RDW 12.7 % (11.5-15.5); WBC 7.6 k/uL (3.8-10.6); WBC (Perox) 8.43
[2016-06-27 05:09] LABS: Anion Gap 8 mmol/L; Blood Urea Nitrogen 12 mg/dL (9-20); Carbon Dioxide 26 mmol/L (22-30); Chloride 108 mmol/L (98-107); Glucose 94 mg/dL (74-99); Non-African American GFR(MDRD) >60 (>60 ml/min/1.73 sqM); Potassium 4.6 mmol/L (3.5-5.1); Sodium 142 mmol/L (137-145)
[2016-06-27 08:07] VITALS: BMI 29.4
[2016-06-27] MEDS: PRASUGREL 10 MG TAB PO SCH (08:21)
[2016-06-27] MEDS: ASPIRIN 325 MG TAB PO SCH (08:21)
--- NOTE | 2016-06-27 11:31 | PN ---
DATE OF SERVICE: 06/26/2016 INTERVAL HISTORY: Mr. Bhandari is a 55-year-old male admitted to the hospital with complaints of chest pain and found to have ST elevated myocardial infarction. The patient underwent cardiac catheterization with stent placement to LAD initially and patient was again taken for RCA stenting today. Otherwise, blood pressure is maintained and patient was hypotensive with blood pressure medications, including metoprolol and Lisinopril which can be expected with lower dose. Cardiology is following this patient. Otherwise, patient does have ejection fraction of 40 to 45% on 2-D echocardiogram. Currently, patient denied any chest pain, short of breath. No acute overnight issues. REVIEW OF SYSTEMS: CONSTITUTIONAL: No fever. No chills. RESPIRATORY: No cough or sputum production. CARDIOVASCULAR: No chest pain or shortness of breath. ABDOMEN: no nausea or vomiting, abdominal pain. GENITOURINARY: Negative. ENDOCRINE: Negative. PSYCHIATRY: Negative. SKIN: Negative. All other 14 point review of systems negative except as above. Current medications are reviewed. PHYSICAL EXAMINATION: 55 -year-old male lying in bed comfortably, awake, alert, oriented, x3, appears to be in no apparent distress. VITALS: Blood pressure is 118/67, pulse is 61, respirations 40, temperature afebrile, pulse ox 93% on room air. HEENT: Atraumatic, normocephalic. Neck is supple. No JVD. CARDIOVASCULAR: S1, S2 heard. No murmurs, no gallop, no rub. LUNGS: Bilateral air entry is present. No wheezing, no crackles. Nonlabored breathing. ABDOMEN: Soft, nontender. Bowel sounds present. CENTRAL NERVOUS SYSTEM: Awake, alert and oriented times three . No focal deficit. EXTREMITIES: No edema. Pulses palpable bilaterally. No clubbing or cyanosis. PSYCHIATRY: Cooperative. LABORATORY DATA: WBC 7.1, hemoglobin 13.9, platelets 184 and INR 1.2, sodium 140, potassium 4.3, chloride 110, bicarb ( ), BUN 11, creatinine 0.8. Magnesium 2.0. IMPRESSION: 1. Acute ST elevated myocardial infarction, status post left anterior descending coronary artery stenting and again right coronary artery stenting today. Cardiology is on board. 2. Hypotensive episode, blood pressure medications have been held. 3. Newly diagnosed coronary artery disease. 4. Cardiomyopathy ejection fraction of 40 to 45%. 5. Deep venous thrombosis prophylaxis. DISCUSSION AND PLAN: The patient will be continued on current management including aspirin and Prasugrel and blood pressure medications have been held. Continue with the statins, cardiology on board. Currently, patient is asymptomatic. Further recommendations based on clinical course. Continue to monitor the patient. CAPRI
[2016-06-27 12:08] VITALS: TEMP 97.8
[2016-06-27] MEDS ORDERED: METOPROLOL TARTRATE 12.5 MG TAB PO SCH (13:45)
--- NOTE | 2016-06-27 15:22 | PN ---
This patient is status post anterior wall myocardial infarction with stent to the LAD and RCA. He is doing fairly well. He denies any chest pain or shortness of breath. The patient's blood pressure is 116/70 mmHg. First and second heart sounds are normal. Lungs are clear to auscultation and percussion. Patient insists he wants to go home. We will put him on Lopressor 12.5 mg b.i.d. His will check his blood pressure at home and he will be followed by Dr. Moreno as an outpatient.
[2016-06-27 16:17] VITALS: BP 118/69; PULSE 63; RESP 13
--- NOTE | 2016-06-30 06:05 | DS ---
DATE OF ADMISSION: 06/23/2016 DATE OF DISCHARGE: 06/27/2016 Cardiology consultation. Cardiac catheterization and stent placement. DISCHARGE DIAGNOSES: 1. Acute ST elevated myocardial infarction, status post stenting of left anterior descending coronary artery and right coronary artery on the subsequent day. 2. Hypotensive episode. Blood pressure medications have been held, started back on low dose of beta blockers currently. 3. Newly diagnosed coronary artery disease. 4. Cardiomyopathy, ejection fraction 40% to 45%. 5. Deep venous thrombosis prophylaxis. HOSPITAL COURSE: Mr. Bhandari is a 55-year-old male without significant past medical history admitted to the hospital with a complaint of chest pain. 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 The patient also had significant disease in the right coronary artery. The patient underwent staged procedure on the following day and stenting of the right coronary artery was done, total of 3 stents were placed. Patient was started on beta blockers and lisinopril. Patient had a hypotensive episode. Blood pressure medications have been held. Currently, blood pressure is improved and patient was started on low dose beta dano and patient was advised to recheck in his blood pressure at home. Otherwise, patient is chest pain free and is being discharged home in stable condition. Cardiology has cleared the patient for discharge. DISCHARGE PHYSICAL EXAMINATION: A 55-year-old male, lying in bed comfortably. Awake, alert, oriented x3. Appears to be in no apparent distress. VITALS: Blood pressure is 118/69, pulse is 63, respirations 13, temperature afebrile, pulse ox 100% on room air. Laboratory data reviewed. Discharge physical examination done. Discharge medications include: 1. Methylphenidate 54 mg p.o. daily. 2. Aspirin 325 mg p.o. daily. 3. Atorvastatin 80 mg p.o. at bedtime. 4. Metoprolol 12.5 mg p.o. b.i.d. 5. Prasugrel 10 mg p.o. daily. Patient will be discharged home in stable condition. Follow with Dr. Julius Oneil in [address] Moreno in one week. Activity as tolerated. Heart healthy diet.
== END 2016-06-27 17:05 | disposition home or self-care (01) | DRG 247 ==
LOC: EC 12:59 → 6ICU 13:20
PROVIDERS: ADMIT Internal Medicine Cardiovascular Disease; ATTEND Internal Medicine
PROC: 4A023N7 Measurement of Cardiac Sampling and Pressure, Left Heart, Percutaneous Approach (ICD-10-PCS; 2016-06-23)
PROC: B2111ZZ Fluoroscopy of Multiple Coronary Arteries using Low Osmolar Contrast (ICD-10-PCS; 2016-06-23)
PROC: 027035Z Dilation of Coronary Artery, One Artery with Two Drug-eluting Intraluminal Devices, Percutaneous Approach (ICD-10-PCS; principal; 2016-06-23 13:15)
PROC: 027034Z Dilation of Coronary Artery, One Artery with Drug-eluting Intraluminal Device, Percutaneous Approach (ICD-10-PCS; 2016-06-26)
PROC: B2101ZZ Fluoroscopy of Single Coronary Artery using Low Osmolar Contrast (ICD-10-PCS; 2016-06-26)
DX: I21.09 ST elevation (STEMI) myocardial infarction involving other coronary artery of anterior wall (principal); I42.9 Cardiomyopathy, unspecified; I45.10 Unspecified right bundle-branch block; E78.5 Hyperlipidemia, unspecified; I25.10 Atherosclerotic heart disease of native coronary artery without angina pectoris; I95.2 Hypotension due to drugs; T44.7X5A Adverse effect of beta-adrenoreceptor antagonists, initial encounter; T46.4X5A Adverse effect of angiotensin-converting-enzyme inhibitors, initial encounter; F41.9 Anxiety disorder, unspecified; Z71.3 Dietary counseling and surveillance; Z79.899 Other long term (current) drug therapy; Z82.49 Family history of ischemic heart disease and other diseases of the circulatory system
CPT/HCPCS: 36415; 71010; 80048; 80053; 80061; 82550; 82553; 83735; 84100; 84484; 85025; 85027; 85610; 85730; 93005; 93306; 93454; 96374; 99291

== ENCOUNTER 2016-09-08 02:10 | Emergency (ER) | payer BC ==
[2016-09-08 02:24] VITALS: BP 118/70; PULSE 62; RESP 18; TEMP 96.8
[2016-09-08] MEDS ORDERED: SILVER NITRATE APPLICATOR 1 EACH STICK..EA. TOPICAL STA (02:41)
--- NOTE | 2016-09-08 03:21 | ED ---
ENT HPI - General Chief complaint: ENT Stated complaint: Tongue Lac Time Seen by Provider: 09/08/16 02:32 Source: patient, RN notes reviewed Mode of arrival: ambulatory Limitations: no limitations - History of Present Illness Initial comments: 55-year-old male presents emergency 5 chief complaint of bite his tongue and unable to get the bleeding to subside. Patient states this happened around 9: 30 tonight. Patient states that he actually did this time. Patient states she' s been unable to get the bleeding stopped. Patient states he started to hold pressure. There is no improvement in his symptoms. Patient states he takes a scan as well as aspirin. Patient states he is not currently having any other symptoms with this.Patient denies any recent fever, chills, shortness of breath , chest pain, back pain, abdominal pain, nausea vomiting, numbness or tingling, dysuria or hematuria, constipation or diarrhea, headaches or visual changes, or any other current symptoms. - Related Data Home Medications Medication Instructions Recorded Confirmed Methylphenidate HCl 54 mg PO DAILY 06/23/16 06/23/16 [Methylphenidate ER] Previous Rx's Medication Instructions Recorded Aspirin 325 mg PO DAILY #30 tab 06/27/16 Atorvastatin [Lipitor] 80 mg PO HS #30 tab 06/27/16 Metoprolol Tartrate [Lopressor] 12.5 mg PO BID #60 tab 06/27/16 Prasugrel [Effient] 10 mg PO DAILY #30 tab 06/27/16 Allergies Allergy/AdvReac Type Severity Reaction Status Date / Time No Known Allergies Allergy Verified 09/08/16 02:24 Review of Systems ROS Statement: Those systems with pertinent positive or pertinent negative responses have been documented in the HPI. ROS Other: All systems not noted in ROS Statement are negative. Past Medical History Past Medical History: Hyperlipidemia, Sleep Apnea/CPAP/BIPAP Additional Past Medical History / Comment(s): 06-23-16 came in w/chest pain. - stemi-to cardiac cath rn. past hx : pt states that his pmd told him he had a heart attack at some point in past no cpap used, "heart burn", "told he had beginnings of dementia", adhd. History of Any Multi-Drug Resistant Organisms: None Reported Past Surgical History: Heart Catheterization, Heart Catheterization With Stent, Hernia Repair Additional Past Surgical History / Comment(s): umbilical hernia repair, colonoscopy(clear). 06-23-16 heart cath w/ stent to rca, heart cath w/3 stent 2016 Past Anesthesia/Blood Transfusion Reactions: No Reported Reaction Past Psychological History: ADD/ADHD Additional Psychological History / Comment(s): live with girlfriend nelli and 2 children, is independant. no outside services, no medical equipment. 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 Smoking Status: Former smoker Past Alcohol Use History: Occasional Additional Past Alcohol Use History / Comment(s): started smokng at age 14 off and on 1-1.5 ppd, quit 2007, pt stated" i am an alcoholic-quit heavy drinking many years ago but stated di have a few beers a month ago", no drugs Past Drug Use History: None Reported - Past Family History Mother Family Medical History: CVA/TIA Father Family Medical History: Coronary Artery Disease (CAD) Additional Family Medical History / Comment(s): stents Brother(s) Family Medical History: Myocardial Infarction ([place]) General Exam Limitations: no limitations General appearance: alert, in no apparent distress Head exam: Present: atraumatic, normocephalic, normal inspection Eye exam: Present: normal appearance ENT exam: Present: normal exam, mucous membranes moist. Absent: normal oropharynx (Patient appears to have a small bleeding laceration to the right side of the tongue.) Neck exam: Present: normal inspection. Absent: tenderness, meningismus, lymphadenopathy Respiratory exam: Present: normal lung sounds bilaterally. Absent: respiratory distress, wheezes, rales, rhonchi, stridor Cardiovascular Exam: Present: regular rate, normal rhythm, normal heart sounds. Absent: systolic murmur, diastolic murmur, rubs, gallop, clicks Neurological exam: Present: alert, oriented X3 Psychiatric exam: Present: normal affect, normal mood Course Vital Signs 09/08/16 02:20 Temperature 96.8 F L Pulse Rate 62 Respiratory 18 Rate Blood Pressure 118/70 O2 Sat by Pulse 98 Oximetry Procedures - Procedures Initial comment: Silver nitrate stick was used to cauterize the tongue. The bleeding did resolve. Patient tolerated well. Medical Decision Making - Medical Decision Making 55-year-old male presents for bleeding to the tongue. This time. Cautery was used to stop the bleeding. There was success. This time we discussed care follow-up return parameters. We discussed all patient's questions. He stated he understood the plan. He will be discharged. Disposition Clinical Impression: Tongue laceration Disposition: HOME SELF-CARE Condition: Stable Instructions: Potassium Nitrate/Silver Nitrate (On the skin) Additional Instructions: Please use medication as discussed. Please follow up with family doctor if symptoms have not improved over the next two days. Please return to the emergency room if your symptoms increase or worsen or for any other concerns. Referrals: Fransisca Anaya MD [STAFF PHYSICIAN] - 1-2 days Time of Disposition: 03:21
== END 2016-09-08 03:35 | disposition home or self-care (01) ==
LOC: EC 02:10
DX: S01.512A Laceration without foreign body of oral cavity, initial encounter (principal); F90.9 Attention-deficit hyperactivity disorder, unspecified type; Z87.891 Personal history of nicotine dependence; Z79.899 Other long term (current) drug therapy; X58.XXXA Exposure to other specified factors, initial encounter
CPT/HCPCS: 99282

== ENCOUNTER 2019-11-09 06:48 | Emergency (ER) | payer BC ==
[2019-11-09 06:55] VITALS: RESP 18
--- NOTE | 2019-11-09 07:09 | ED ---
Skin/Abscess/FB HPI - General Chief complaint: Skin/Abscess/Foreign Body Stated complaint: unable to urinate Time Seen by Provider: 11/09/19 06:58 Source: patient Mode of arrival: ambulatory Limitations: no limitations - History of Present Illness Initial comments: 59 yo male presenting for rectal pain, difficulty urinating. Patient states he has had difficulty urinating for quite some time he states especially difficult in the morning. Patient states that is not unusual. Patient states she had a walk around in order to urinate this morning he states he is unsure if he has prostate issues or not he states he has had hesitancy lately. Patient denies any dysuria. Patient states that he also has history of hemorrhoids. Patient states that he began developing rectal pain and felt a lump he states he thought it was a hemorrhoid input preparation H on it. Patient states this gave minimal relief. Patient states when pain persisted today he felt it was best to come to the ER for evaluation. Patient has no additional complaints. - Related Data Home Medications Medication Instructions Recorded Confirmed Aspirin EC [Ecotrin Low Dose] 81 mg PO DAILY 11/09/19 11/09/19 Evolocumab [Repatha Syringe] 140 mg SQ Q14D 11/09/19 11/09/19 Previous Rx's Medication Instructions Recorded Hydrocortisone [Anusol-Hc] 1 applic RECTAL BID 7 Days #30 gm 11/09/19 Allergies Allergy/AdvReac Type Severity Reaction Status Date / Time No Known Allergies Allergy Verified 11/09/19 07:48 Review of Systems ROS Statement: Those systems with pertinent positive or pertinent negative responses have been documented in the HPI. ROS Other: All systems not noted in ROS Statement are negative. Past Medical History Past Medical History: Hyperlipidemia, Sleep Apnea/CPAP/BIPAP Additional Past Medical History / Comment(s): 06-23-16 came in w/chest pain. -stemi-to microbiology lab analyst. past hx : pt states that his pmd told him he had a heart attack at some point in past no cpap used, "heart burn", "told he had beginnings of dementia", adhd. History of Any Multi-Drug Resistant Organisms: None Reported Past Surgical History: Heart Catheterization, Heart Catheterization With Stent, Hernia Repair Additional Past Surgical History / Comment(s): umbilical hernia repair, colonoscopy(clear). 06-23-16 heart cath w/ stent to rca, heart cath w/3 stent 2016 Past Anesthesia/Blood Transfusion Reactions: No Reported Reaction Past Psychological History: ADD/ADHD Smoking Status: Never smoker Past Alcohol Use History: Occasional Past Drug Use History: None Reported - Past Family History Mother Family Medical History: CVA/TIA Father Family Medical History: Coronary Artery Disease (CAD) Additional Family Medical History / Comment(s): stents Brother(s) Family Medical History: Myocardial Infarction ([place]) General Exam Limitations: no limitations Course Vital Signs 11/09/19 06:52 Temperature 97.7 F Pulse Rate 58 L Respiratory 18 Rate Blood Pressure 149/89 O2 Sat by Pulse 100 Oximetry - Reevaluation(s) Reevaluation #1: 11/09/19 refused urinary cath, stating he can pee later and not under stress in the hospital. Discussed risk to injury to kidneys from obstruction, patient continued to refuse. Medical Decision Making - Medical Decision Making 59yo male presenting for cc of cant pee, rectal pain. External hemorrhoid soft on examination but tender. [place]. Patient has had issues with hesitancy for the past few months. Denies any flank or back pain. Denies pain with urination/fevers. patient memory this time does not appear thrombosed. Recommended topical treatments, sitz bath after discussing findings with attending. Patient is to return if he is unable to urinate in the next 3-4 hours. Patient verbalized understanding and was discharged with general surgery and urology f/u. Patient agreeable to care plan. Dr. Roberts agreeable to care plan and discharge. - Lab Data Result diagrams: 11/09/19 07:58 11/09/19 07:58 Lab Results 11/09/19 11/09/19 Range/Units 07:58 07:58 WBC 5.9 (3.8-10.6) k/uL RBC 4.77 (4.30-5.90) m/uL Hgb 14.5 (13.0-17.5) gm/dL Hct 44.9 (39.0-53.0) % MCV 94.2 (80.0-100.0) fL MCH 30.4 (25.0-35.0) pg MCHC 32.3 (31.0-37.0) g/dL RDW 12.2 (11.5-15.5) % Plt Count 224 (150-450) k/uL Neutrophils % 60 % Lymphocytes % 27 % Monocytes % 6 % Eosinophils % 4 % Basophils % 1 % Neutrophils # 3.5 (1.3-7.7) k/uL Lymphocytes # 1.6 (1.0-4.8) k/uL Monocytes # 0.3 (0-1.0) k/uL Eosinophils # 0.2 (0-0.7) k/uL Basophils # 0.0 (0-0.2) k/uL Sodium 139 (137-145) mmol/L Potassium 4.2 (3.5-5.1) mmol/L Chloride 105 (98-107) mmol/L Carbon Dioxide 26 (22-30) mmol/L Anion Gap 8 mmol/L BUN 18 (9-20) mg/dL Creatinine 0.82 (0.66-1.25) mg/dL Est GFR (CKD-EPI)AfAm >90 (>60 ml/min/1.73 sqM) Est GFR (CKD-EPI)NonAf >90 (>60 ml/min/1.73 sqM) Glucose 105 H (74-99) mg/dL Calcium 8.7 (8.4-10.2) mg/dL Total Bilirubin 0.7 (0.2-1.3) mg/dL AST 22 (17-59) U/L ALT 16 (4-49) U/L Alkaline Phosphatase 61 (38-126) U/L Total Protein 7.0 (6.3-8.2) g/dL Albumin 4.1 (3.5-5.0) g/dL Disposition Clinical Impression: Urinary retention, External hemorrhoid Disposition: HOME SELF-CARE Condition: Good Instructions (If sedation given, give patient instructions): Hemorrhoids (ED) Additional Instructions: Please use medication as discussed. Please follow-up with family doctor in the next 2 days, recommend general surgery follow-up for hemorrhoid and urology follow-up or for urinary retention. Do sitz baths, witch daxa wipes can help as discussed. Immediate return for consistent urinary retention. Please return to emergency room if the symptoms increase or worsen or for any other concerns. Prescriptions: Hydrocortisone [Anusol-Hc] 1 applic RECTAL BID 7 Days #30 gm Is patient prescribed a controlled substance at d/c from ED?: No Referrals: Nonstaff,Physician [Primary Care Provider] - 1-2 days Mateusz Dawn MD [STAFF PHYSICIAN] - 1-2 days Markie Sharp MD [Medical Doctor] - 1-2 days Time of Disposition: 08:26
[2019-11-09] MEDS ORDERED: ACET/COD 300 MG/30 MG STARTER PACK 6 TAB BTL PO STA (07:43)
[2019-11-09 08:08] LABS: Basophils % (A) 1 %; Eosinophils # (A) 0.2 k/uL (0-0.7); Eosinophils % (A) 4 %; HCT 44.9 % (39.0-53.0); HGB 14.5 gm/dL (13.0-17.5); Lymphocytes # (A) 1.6 k/uL (1.0-4.8); Lymphocytes % (A) 27 %; MCH 30.4 pg (25.0-35.0); MCHC 32.3 g/dL (31.0-37.0); MCV 94.2 fL (80.0-100.0); Mean Platelet Volume 7.2; Monocytes # (A) 0.3 k/uL (0-1.0); Monocytes % (A) 6 %; Neutrophils # (A) 3.5 k/uL (1.3-7.7); Neutrophils % (A) 60 %; Platelet Count 224 k/uL (150-450); RBC 4.77 m/uL (4.30-5.90); RDW 12.2 % (11.5-15.5); WBC 5.9 k/uL (3.8-10.6)
[2019-11-09 08:20] LABS: ALT 16 U/L (4-49); AST 22 U/L (17-59); African American GFR (CKD) >90 (>60 ml/min/1.73 sqM); Albumin 4.1 g/dL (3.5-5.0); Alkaline Phosphatase 61 U/L (38-126); Anion Gap 8 mmol/L; Blood Urea Nitrogen 18 mg/dL (9-20); Calcium 8.7 mg/dL (8.4-10.2); Carbon Dioxide 26 mmol/L (22-30); Chloride 105 mmol/L (98-107); Glucose 105 mg/dL (74-99); Non-African American GFR(CKD) >90 (>60 ml/min/1.73 sqM); Potassium 4.2 mmol/L (3.5-5.1); Sodium 139 mmol/L (137-145); Total Bilirubin 0.7 mg/dL (0.2-1.3)
[2019-11-09 09:05] VITALS: BP 135/85; PULSE 64; TEMP 97.8
== END 2019-11-09 09:00 | disposition home or self-care (01) ==
LOC: EC 06:48
DX: K64.4 Residual hemorrhoidal skin tags (principal); R33.9 Retention of urine, unspecified; E78.5 Hyperlipidemia, unspecified; Z79.82 Long term (current) use of aspirin; Z79.899 Other long term (current) drug therapy; Z95.5 Presence of coronary angioplasty implant and graft
CPT/HCPCS: 36415; 51798; 80053; 85025; 99284

== ENCOUNTER → 2023-04-16 | Outpatient (CLI) | payer BC ==
--- NOTE | 2023-04-16 16:39 | MR ---
EXAMINATION TYPE: MR brain wo/w con DATE OF EXAM: 04/16/2023 COMPARISON: None HISTORY: Dementia. TECHNIQUE: Multiplanar, multisequence images of the brain and brainstem is performed without and with IV contras t, utilizing 10 mL intravenous Gadavist . FINDINGS: On the T1-weighted sagittal images, the midline structures including the craniovertebral junction rel ationships are normal. The ventricles, basal cisterns and sulci over the convexities within normal limits and there is no ma ss effect or shift of midline structures. There is mild multifocal abnormal signal intensity in the white matter both cerebral hemispheres cons istent with mild chronic ischemic white matter demyelination. Based on diffusion-weighted imaging, there is no diffusion restriction or acute ischemic event. There is no hemosiderin deposition to suggest remote hemorrhage. Following contrast administration, t here is no pathological enhancement throughout the brain parenchyma. The intraorbital contents appear normal and symmetric. Visualized paranasal sinuses and mastoid air cells are well aerated. The posterior fossa including the brainstem, fourth ventricle and cerebellar pontine angles appear no rmal. IMPRESSION: 1. No acute ischemic event. 2. Mild multifocal chronic ischemic white matter demyelination.
== END | disposition home or self-care (01) ==
LOC: RADMRIMAIN 11:19
PROVIDERS: ATTEND Psychiatry & Neurology Neurology
DX: I67.82 Cerebral ischemia (principal); G30.1 Alzheimer's disease with late onset
CPT/HCPCS: 70553; A9585

== ENCOUNTER → 2024-05-02 | Outpatient (CLI) | payer BC ==
[2024-05-02 19:56] LABS: ALT 13 U/L (10-49); AST 17 U/L (14-35); LDL Cholesterol,Calculated 72.8 mg/dL (0.0-131.0); VLDL Calculation 17.52 mg/dL (5.00-40.00)
== END | disposition home or self-care (01) ==
LOC: LABWHC1 12:13
PROVIDERS: ATTEND Internal Medicine Cardiovascular Disease
DX: E78.2 Mixed hyperlipidemia (principal)
CPT/HCPCS: 36415; 80061; 84450; 84460